=== PATIENT | female | born 1950 | race Caucasian/White ===

== ENCOUNTER → 2021-09-16 12:52 | Outpatient (CLI) | payer OTHER, SELFPAY ==
--- NOTE | 2021-09-16 12:55 | DI.RAD.S_ITS ---
PROCEDURE: XR RIBS RT MIN 3V W CXR 1V INDICATIONS: R rib pain s/p fall TECHNIQUE: 2 views of the right ribs were acquired, along with a single view chest. COMPARISON: None. FINDINGS: Surgical changes and devices: None. Bones and chest wall: Subtle cortical irregularity involving right lateral 7th rib is seen concerning for subtle nondisplaced fracture. No other rib fracture is noted. No suspicious bony lesions. Overlying soft tissues appear unremarkable. Lungs and pleura: No pleural effusions or pneumothorax. Lungs appear clear. Mediastinum: Mediastinal contours appear normal. Heart size is normal. IMPRESSION: Finding may represent subtle nondisplaced fracture involving right lateral 7th rib. No gross displaced rib fracture is seen. No acute cardiopulmonary pathology. Dictated by: Isaias Neal M.D. on 09/16/2021 at 13:45 Approved by: Isaias Neal M.D. on 09/16/2021 at 13:46
== END ==
PROVIDERS: Referring Provider Physician Assistant; Visit Provider Physician Assistant
DX: R07.81 Pleurodynia (principal)
CPT/HCPCS: 71101